=== PATIENT | female | born 1950 | race African-American/Black ===

== ENCOUNTER → 2017-05-13 | Outpatient (CLI) | payer MEDICARE, MEDICAID ==
[~2017-05-13] MED LIST: CHOL2000 PO; GABA600T2 PO; GADOBUTROL 10 MMOL/10 ML PFS ONE; HYDR-3241 PO; MELO15TA24 PO; METH750T2 PO; METO50TA82 PO; SERT100T5 PO; ZOLP10TA5 PO
== END | disposition home or self-care (01) ==
LOC: CFH 14:16
PROVIDERS: ATTEND Radiology Radiation Oncology
DX: D32.0 Benign neoplasm of cerebral meninges (principal)
CPT/HCPCS: 70543; 70553; A9585

== ENCOUNTER → 2017-06-03 | Outpatient (CLI) | payer MEDICARE, MEDICAID ==
[~2017-06-03] MED LIST changes: -GADOBUTROL 10 MMOL/10 ML PFS ONE
== END | disposition home or self-care (01) ==
LOC: ROC 08:34
PROVIDERS: ATTEND Radiology Radiation Oncology
DX: Z08 Encounter for follow-up examination after completed treatment for malignant neoplasm (principal); Z85.840 Personal history of malignant neoplasm of eye
CPT/HCPCS: G0463

== ENCOUNTER 2020-08-19 18:31 | Emergency (ER) | payer MEDICAID, MEDICARE, OTHER ==
[~2020-08-19] VITALS: Ht 160 cm; Wt 113.9 kg
[~2020-08-19 18:31] MED LIST changes: -GABA600T2 PO; +GABA600T7 PO; +METH-640 PO; -METH750T2 PO; +SERT100T32 PO; -SERT100T5 PO
--- NOTE | 2020-08-19 19:13 | NUR ---
PER PT "ABOUT 1:30PM HAVING SOME BREATHING ISSUES, CHEST PAINS AND A HEADACHE, HASN'T GOTTEN BETTER, GOT MY SECOND [employer]ER[employer] COVID SHOT ON 08/09. MY BLOOD PRESSURE HAS BEEN HIGH 160-200'S/95-120'S, TAKING MY PILLS." EKG COMPLETED IN TRIAGE. DR. MEJIA TO BEDSIDE FOR EVALUATION. PT ATTACHED TO ALL MONITORS VSS. LEOS.
[2020-08-19] MEDS ORDERED: SODIUM CHLORIDE FLUSH 10ML SYR IVF ONE (19:30)
[2020-08-19] MEDS ORDERED: MECLIZINE CHEWABLE 25 MG TAB PO ONE (19:30)
[2020-08-19] MEDS ORDERED: ACETAMINOPHEN 325 MG TABLET PO ONE (19:30)
[2020-08-19 19:40] LABS: ALANINE AMINOTRANSFERASE 13 U/L (12-78); ALBUMIN 3.9 g/dL (3.4-5.0); ANION GAP 5 mmol/L (5-15); CHLORIDE 111 mmol/L (98-107); CREATININE 0.79 mg/dL (0.55-1.02)
[2020-08-19 19:42] LABS: BASOPHILS % (AUTO) 1 % (0-1); EOSINOPHILS % (AUTO) 3 % (1-7); LYMPHOCYTES % (AUTO) 47 % (22-44); MEAN CORPUSCULAR HEMOGLOBIN 23.1 pg (27.0-34.8); MEAN CORPUSCULAR HGB CONC 32.4 g/dL (32.4-35.8); MEAN PLATELET VOLUME 8.6 fL (7.4-10.4); MONOCYTES % (AUTO) 8 % (2-9); NEUTROPHILS % (AUTO) 41 % (42-75); PLATELET COUNT 236 x10^3/uL (130-400); RED BLOOD COUNT 6.18 x10^6/uL (3.82-5.3); RED CELL DISTRIBUTION WIDTH 16.9 % (9.6-15.2)
[2020-08-19 19:43] LABS: MD NO
[2020-08-19 19:45] LABS: ALKALINE PHOSPHATASE 120 U/L (45-117); BILIRUBIN,TOTAL 0.4 mg/dL (0.2-1.0); TOTAL PROTEIN 7.7 g/dL (6.4-8.2); TROPONIN I < 0.015 ng/mL (0.000-0.045)
[2020-08-19] MEDS ORDERED: MECLIZINE CHEWABLE 25 MG TAB ONE (19:55)
[2020-08-19] MEDS ORDERED: ACETAMINOPHEN 325 MG TABLET ONE (19:55)
[2020-08-19 19:59] VITALS: BP 156/77
[2020-08-19] MEDS ORDERED: KETOROLAC 30 MG/1 ML IVPush ONE (20:00)
--- NOTE | 2020-08-19 20:00 | NUR ---
PT MEDICATED PER EMAR. BACK FROM BATHROOM WITH STEADY GAIT. REFUSING IV INSERT AT THIS TIME. VSS. LEOS.
[2020-08-19] MEDS ORDERED: KETOROLAC 30 MG/1 ML ONE (20:06)
--- NOTE | 2020-08-19 20:19 | NUR ---
Patient/Caregiver given discharge instructions and they have confirmed that they understand the instructions. Patient ambulatory with steady gait.
== END 2020-08-19 20:20 | disposition home or self-care (01) ==
LOC: ED 19:47
DX: M79.10 Myalgia, unspecified site (principal); R07.89 Other chest pain; R11.0 Nausea; I10 Essential (primary) hypertension; I25.2 Old myocardial infarction; M19.90 Unspecified osteoarthritis, unspecified site; Z86.73 Personal history of transient ischemic attack (TIA), and cerebral infarction without residual deficits; Z87.891 Personal history of nicotine dependence
CPT/HCPCS: 36415; 71045; 80053; 83880; 84484; 85025; 85379; 93005; 99283